=== PATIENT | male | born 2000 | race Caucasian/White ===

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

== ENCOUNTER 2020-06-27 21:18 | Emergency (ER) | payer BC ==
[2020-06-27 21:25] VITALS: BP 129/66; PULSE 81; TEMP 98.2; BMI 23.1
--- NOTE | 2020-06-27 22:19 | PDOC ---
Documentation entered by Luz Cerda SCRIBE, acting as scribe for Marco A Rodgers MD. Marco A Rodgers MD: This documentation has been prepared by the [email or web address], Luz Cerda SCRIBE, under my direction and personally reviewed by me in its entirety. I confirm that the documentation accurately reflects all work, treatment, procedures, and medical decision making performed by me. History of Present Illness - General Chief Complaint: Rash Stated Complaint: POISON LIONEL Time Seen by Provider: 06/27/20 21:30 History Source: Patient Exam Limitations: No Limitations - History of Present Illness Initial Comments: 06/27/20 21:51 The patient is a 19-year-old male who presents to the emergency department s/p poison lionel exposure. The patient presents with 4 days of worsening rash to the right posterior thigh, posterior knee, and calf after an unknown poison lionel exposure. The patient reports following up at urgent care this morning, where they were concerned about the rash, then they followed up with a retail key holder around 3:00 pm, who shaista a line around the rash and prescribed antibiotic and steroid for the patient. The patient reports taking his first dose around 3:30 pm. The patient reports over the evening they noticed the rash progressive past the line which was drawn earlier and decided to be evaluated. The patient reports itching over the rash and slight pain to the posterior thigh. PAST MEDICAL HISTORY: no significant history PAST SURGICAL HISTORY: no significant history FAMILY HISTORY: no pertinent history SOCIAL HISTORY: Pt lives with family and is a student MEDICATIONS: reviewed ALLERGIES: As per nursing notes PCP: Dr. August. Review of system: General: No fevers or chills, no weakness, no weight loss HEENT: No change in vision. No sore throat. No ear pain CardioVascular: No chest pain or shortness of breath Respiratory:No cough, or wheezing. Gastrointestinal: no nausea, vomiting, diarrhea or constipation, No rectal bleeding Genitourinary: No dysuria, hematuria, or frequency Musculoskeletal: No joint or muscle pain or swelling Neurologic: No headache, vertigo, dizziness or loss of consciousness Psychiatric: nor depression Skin: +rash s/p posion lionel exposure. No easy bruising Endocrine: no increased thirst or abnormal weight change Allergic: no skin or latex allergy All other systems reviewed and normal Physical exam: GENERAL: The patient is awake, alert, and fully oriented, in no acute distress. HEAD: Normal with no signs of trauma. EYES: Pupils equal, round and reactive to light, extraocular movements intact, sclera anicteric, conjunctiva clear. EXTREMITIES: Normal range of motion, no edema. NEUROLOGICAL: Normal speech, normal gait. PSYCH: Normal mood, normal affect. SKIN: +right leg: posterior popliteal multiple vesicular lesions consistent with position lionel and some associated inflammatory changes/erythema. Warm, Dry, normal turgor, no other rashes or lesions noted. Past History - Medical History Allergies/Adverse Reactions: Allergies Allergy/AdvReac Type Severity Reaction Status Date / Time No Known Allergies Allergy Verified 07/27/15 16:48 Home Medications: Ambulatory Orders Betamethasone Dipropionate 06/27/20 Keflex 06/27/20 Mupirocin 06/27/20 Prednisone 06/27/20 COPD: No - Immunization History Immunization Up to Date: Yes - Psycho-Social/Smoking History Smoking History: Never smoked *Physical Exam - Vital Signs Last Vital Signs Temp Pulse Resp BP Pulse Ox 98.2 F 81 16 129/66 99 06/27/20 21:21 06/27/20 21:21 06/27/20 21:21 06/27/20 21:21 06/27/20 21:21 Discharge - Discharge Information Problems reviewed: Yes Clinical Impression/Diagnosis: Poison lionel dermatitis Condition: Stable - Admission No - Follow up/Referral Referrals: Bebo August [Primary Care Provider] - - Patient Discharge Instructions Additional Instructions: Continue to take all your medications as prescribed. Return to the emergency department if significantly worse in 24 hours or not improved in 48 hours. Return to the emergency department immediately with ANY new, persistent or worsening symptoms. Continue any medications as previously prescribed by your physician. You should follow up with your primary doctor as soon as possible regarding today's emergency department visit. . Please make sure your doctor reviews the results of your emergency evaluation. Thank you for coming to the Emergency Department today for your care. It was a pleasure to see you today. Please note that your evaluation is INCOMPLETE until you follow-up with your doctor. - Post Discharge Activity
== END 2020-06-27 21:45 | disposition home or self-care (01) ==
LOC: FER 21:18
DX: L23.7 Allergic contact dermatitis due to plants, except food (principal)
CPT/HCPCS: 99282-25